=== PATIENT | male | born 2000 | race Caucasian/White ===

== ENCOUNTER 2023-06-08 13:23 | Emergency (ER) | payer BC, SELFPAY ==
[2023-06-08 13:43] VITALS: BP 100/56; PULSE 78; RESP 16; TEMP 37; O2SAT 100
--- NOTE | 2023-06-08 14:05 | ED.MALEGU ---
HPI - Male Genitourinary General Chief complaint: Urogenital-Male Stated complaint: STD testing Time Seen by Provider: 06/08/23 13:45 Source: patient and RN notes reviewed Mode of arrival: ambulatory Limitations: no limitations History of Present Illness HPI Narrative: Patient presents today complaining of exposure to chlamydia. He was notified that his girlfriend tested positive. He has been having unprotected intercourse. States 2 days ago he had 1 episode of dysuria, but since that time he has had no symptoms. No history of STIs. Related Data Allergies Allergy/AdvReac Type Severity Reaction Status Date / Time No Known Allergies Allergy Verified 06/08/23 13:57 Review of Systems Review of Systems: CONSTITUTIONAL: Denies body aches, fever, chills, or sweats. EYES: Denies visual changes, redness, or discharge. ENT: Denies rhinorrhea, congestion, sore throat, or otalgia. CARDIOVASCULAR: Denies chest pain, palpitations, or edema. RESPIRATORY: Denies cough or dyspnea. GASTROINTESTINAL: Denies abdominal pain, nausea, vomiting, or diarrhea. GENITOURINARY: Denies hematuria.+ dysuria-resolved SKIN: Denies rash, itching, or wounds. MUSCULOSKELETAL: Denies back pain, joint pain, or myalgia. NEUROLOGIC: Denies headache, numbness, tingling, or weakness. PSYCH: Denies depression or anxiety. PMFSH Comments At time of signature, I have reviewed and agree with nursing past medical, surgical, social and family history unless otherwise noted. Please see nursing chart for further information. There is no relevant family history pertinent to the presenting complaint Exam Narrative: GENERAL: Well-appearing, well-nourished, and in no acute distress. HEAD: Normocephalic, atraumatic. EYES: EOMI. No redness or drainage. Conjunctivae normal. ENT: Mucous membranes pink and moist. NECK: Normal AROM. CHEST: No respiratory distress. :deferred EXTREMITIES: Normal range of motion. No edema. SKIN: Warm, dry, no rash. Capillary refill normal. Normal skin turgor. NEURO: No focal deficits. Alert and oriented x3. Gait steady. PSYCH: Normal affect. No signs of depression or anxiety. Course Course Level of Care: Express Care Visit Vital Signs Vital signs: Vital Signs Temperature 98.6 F 06/08/23 13:43 Pulse Rate 78 06/08/23 13:43 Respiratory Rate 16 06/08/23 13:43 Blood Pressure 100/56 L 06/08/23 13:43 Pulse Oximetry 100 06/08/23 13:43 Oxygen Delivery Room Air 06/08/23 13:43 Temperature 98.6 F 06/08/23 13:43 Pulse Rate 78 06/08/23 13:43 Respiratory Rate 16 06/08/23 13:43 Blood Pressure 100/56 L 06/08/23 13:43 Pulse Oximetry 100 06/08/23 13:43 Oxygen Delivery Room Air 06/08/23 13:43 Reviewed MDM - Male Genitourinary MDM Narrative Medical decision making narrative: Urine sample collected to test for gonorrhea, chlamydia, and Trichomonas. Rocephin injection given in clinic to cover for gonorrhea. Prescriptions for Flagyl and doxycycline sent to pharmacy to cover for Trichomonas and chlamydia respectively. Anticipatory guidance given. Differential Diagnosis Differential diagnosis: Likely urinary tract infection and other (Gonorrhea, chlamydia, Trichomonas) Critical Care Time Critical Care Time Critical Care Time: No Discharge Plan Discharge Clinical Impression: Exposure to chlamydia, Concern about STD in male without diagnosis Patient Disposition: Home, Self-Care Condition: Stable Instructions: Antibiotic Form, Chlamydia (ED) Additional Instructions: Your urinalysis sample at [facility] today was negative for a infection. Your urine sample has been sent off to test for gonorrhea, chlamydia, and trichomonas infections. These tests can take up to 2 days to come back. You will be notified by telephone if any of your tests come back positive. You have been treated with Rocephin in urgent care today to cover you for gonorrhea. Prescriptions for Flagyl and
[2023-06-08] MEDS: cefTRIAXone 500 MG, LIDOCAINE HCL 1% LOCAL INJ 1 ML IM (14:12)
[2023-06-08 19:09] LABS: Trichomonas Vag PCR NOT DETECTED (NOT DETECTE)
[2023-06-08 19:34] LABS: Chlamydia trachomatis NOT DETECTED (NOT DETECTE); Neisseria gonorrhoeae PCR NOT DETECTED (NOT DETECTE)
== END 2023-06-08 14:32 | disposition home or self-care (01) ==
PROVIDERS: Emergency Provider Nurse Practitioner; PCP Pediatrics
DX: Z20.2 Contact with and (suspected) exposure to infections with a predominantly sexual mode of transmission (principal)
CPT/HCPCS: 87491; 87591; 87661; 96372; 99213; G0463; J0696